=== PATIENT | male | born 1950 | race Caucasian/White ===

== ENCOUNTER 2025-06-21 05:53 | Day surgery (SDC) | payer MEDICARE ==
[2025-06-21] MEDS ORDERED: PROPOFOL 20 ML ONE (06:29)
[2025-06-21] MEDS ORDERED: SUCCINYLCHOLINE/SOD CL,ISO/PF 200 MG/10 ML SYRINGE FS ONE (06:29)
[2025-06-21 06:50] LABS: #Basophils Less than 0.03 10x3/uL (0.0-0.2); #Eosinophils 0.13 10x3/uL (0.0-0.5); #Monocytes 0.46 10x3/uL (0.0-1.1); #Neutrophils 2.73 10x3/uL (1.5-8.4); %Basophils 0.5 % (0.0-2.0); %Eosinophils 3.2 % (0.0-6.0); %Lymphocytes 18.7 % (18.0-47.0); %Monocytes 11.2 % (0.0-10.0); %Neutrophils 66.2 % (40.0-75.0); Hematocrit 41.0 % (38.8-50.0); Hemoglobin 12.8 g/dL (13.5-17.5); Mean Corpuscular Hemoglobin 33.1 pg (27.0-33.0); Mean Corpuscular Volume 105.9 fL (81.2-95.1); Platelet Count 121 10x3/uL (150-450); Red Blood Cell (RBC) Count 3.87 10x6/uL (4.32-5.72); White Blood Cell (WBC) Count 4.12 10x3/uL (3.5-10.5)
[2025-06-21 06:56] LABS: INR-International Normal Ratio 1.1; PTT 25.9 sec (22.0-33.0); Prothrombin Time 11.9 sec (9.5-12.1)
[2025-06-21 07:04] LABS: Anion Gap 13 mmol/L (10-20); BUN (Urea Nitrogen) 19 mg/dL (8.4-25.7); Calc. Creatinine Clearance 0 mL/min (70-130); Calcium 8.8 mg/dL (7.8-10.44); Carbon Dioxide 27 mmol/L (23-31); Chloride 105 mmol/L (98-107); Glucose 101 mg/dL (83-110); Potassium 3.8 mmol/L (3.5-5.1); Sodium 141 mmol/L (136-145)
== END 2025-06-21 08:35 | disposition home or self-care (01) ==
LOC: CSHSDC 05:53
PROVIDERS: ATTEND Otolaryngology Otolaryngic Allergy
PROC: 3E0F8GC Introduction of Other Therapeutic Substance into Respiratory Tract, Via Natural or Artificial Opening Endoscopic (ICD-10-PCS; principal; 2025-06-21)
DX: J38.01 Paralysis of vocal cords and larynx, unilateral (principal); J38.1 Polyp of vocal cord and larynx; H61.22 Impacted cerumen, left ear; I10 Essential (primary) hypertension; E03.9 Hypothyroidism, unspecified; F17.210 Nicotine dependence, cigarettes, uncomplicated; Z79.890 Hormone replacement therapy; Z79.899 Other long term (current) drug therapy
CPT/HCPCS: 31571; 80048; 85025; 85610; 85730; C1763; J0169; J1100; J2250; J2704 ×2; 36415